=== PATIENT | female | born 1950 | race African-American/Black ===

== ENCOUNTER → 2018-08-03 | Outpatient (CLI) | payer OTHER ==
--- NOTE | 2018-08-03 11:11 | RAD ---
Carotid ultrasound, 08/03/2018: HISTORY: Stroke Duplex evaluation of the carotid arteries and neck was performed including grayscale, color-flow and spectral Doppler analysis. There is mild intimal thickening and minimal smooth plaquing in the common carotid arteries and at the carotid bifurcations. The peak systolic velocity in the right internal carotid artery is 108 cm per sec with an end-diastolic velocity of 32 cm/s and an internal carotid to common carotid artery ratio of 0.9. The peak systolic velocity in the left internal carotid artery is 82 cm/s with an end-diastolic velocity of 31 cm/s and an internal carotid to common carotid artery ratio of 0.7. These Doppler findings do not suggest significant stenosis. Antegrade flow is present in both vertebral arteries in the neck. IMPRESSION: Minimal atherosclerotic plaquing at the carotid bifurcations with no duplex evidence of significant stenosis. Note: Stenosis calculations for CT, MRA and conventional angiography are based upon determination of the distal ICA diameter in accordance with the NASCET methodology. Stenosis calculations for Doppler studies are derived from validated velocity criteria which are known to correlate with NASCET methodology of determining stenosis. Electronically signed by: Jun Rosales MD (08/03/2018 11:09 AM) [facility]
== END | disposition home or self-care (01) ==
LOC: US 09:56
PROVIDERS: ATTEND Psychiatry & Neurology Neurology
DX: I65.23 Occlusion and stenosis of bilateral carotid arteries (principal); I63.9 Cerebral infarction, unspecified
CPT/HCPCS: 93880

== ENCOUNTER → 2018-08-22 | Outpatient (CLI) | payer OTHER ==
--- NOTE | 2018-08-22 13:03 | CARD ---
MR#: [id number] Date of Study: 08/22/2018 Ordering Physician: TOMY POWERS, Referring Physician: TOMY POWERS, Tech: Mercedez Fajardo RDCS APPROVED REPORT EXAM: Two-dimensional and M-mode echocardiogram with Doppler and color Doppler. Other Information Quality : Good INDICATION CVA/TIA Echo Enhancing Agent Agent/Amount Used: Optison 8mL 2D DIMENSIONS RVDd2.4 (2.9-3.5cm)Left Atrium(2D)3.4 (1.6-4.0cm) IVSd0.7 (0.7-1.1cm)Aortic Root(2D)2.6 (2.0-3.7cm) LVDd5.1 (3.9-5.9cm)LVOT Diameter2.0 (1.8-2.4cm) PWd0.8 (0.7-1.1cm)LVDs3.8 (2.5-4.0cm) FS (%) 25.4 %SV62.3 ml LVEF(%)55.0 (>50%) Aortic Valve AoV Peak Randy.112.4cm/sAoV VTI23.8cm AO Peak GR.5.1mmHgLVOT Peak Randy.85.5cm/s LVOT VTI 20.57cmAO Mean GR.3mmHg SIGIFREDO (VMAX)2.11we1CXY (VTI)2.76cm2 Mitral Valve MV E Gtqqebdn72.4cm/sMV DECEL HXTR303zq MV A Szgogsbi868.2cm/sMV XVM45mx E/A Ratio0.9MVA (PHT)3.92cm2 TDI E/Lateral E'15.2E/Medial E'20.6 Tricuspid Valve TR P. Iqmskiad684lu/sRAP FEZDWHAC2lvOk TR Peak Gr.49mwXrCHVK65akOk Pulmonary Vein S1 Docygvab40.7cm/sD2 Oqkkrohm16.3cm/s LEFT VENTRICLE The left ventricle is normal size. There is normal left ventricular wall thickness. The left ventricu lar systolic function is normal. The Ejection Fraction is 60%. There is normal LV segmental wall javon on. Transmitral Doppler flow pattern is Grade I-abnormal relaxation pattern. RIGHT VENTRICLE The right ventricle is normal size. The right ventricular systolic function is normal. ATRIA The left atrium size is normal. The right atrium size is normal. The interatrial septum is intact wit h no evidence for an atrial septal defect or patent foramen ovale as noted on 2-D or Doppler imaging. Injection of bubbles documented no interatrial shunt. AORTIC VALVE The aortic valve is calcified but opens well. Doppler and Color Flow revealed trace aortic regurgitat ion. There is no significant aortic valvular stenosis. MITRAL VALVE The mitral valve is calcified but opens well. There is no evidence of mitral valve prolapse. There is no mitral valve stenosis. Doppler and Color-flow revealed trace mitral regurgitation. TRICUSPID VALVE The tricuspid valve is normal in structure and function. Doppler and Color Flow revealed trace tricus pid regurgitation. The PA pressure was estimated at 20 mmHg. There is no tricuspid valve stenosis. PULMONIC VALVE The pulmonic valve is not well visualized. Doppler and Color Flow revealed no pulmonic valvular regur gitation. There is no pulmonic valvular stenosis. GREAT VESSELS The aortic root is normal in size. The ascending aorta is normal in size. The IVC is normal in size a nd collapses >50% with inspiration. PERICARDIAL EFFUSION There is no evidence of significant pericardial effusion. Critical Notification Critical Value: No <Conclusion> The left ventricular systolic function is normal. The Ejection Fraction is 60%. There is normal LV segmental wall motion. Trace mitral regurgitation. Trace tricuspid regurgitation. The PA pressure was estimated at 20 mmHg. There is no evidence of significant pericardial effusion. Injection of bubbles documented no interatrial shunt. Signed by : Hasmukh Borjas, Electronically Approved : 08/22/2018 13:03:42
== END | disposition home or self-care (01) ==
LOC: ECHO 11:06
PROVIDERS: ATTEND Psychiatry & Neurology Neurology
DX: I08.0 Rheumatic disorders of both mitral and aortic valves (principal); Z86.73 Personal history of transient ischemic attack (TIA), and cerebral infarction without residual deficits
CPT/HCPCS: 93306